=== PATIENT | male | born 1980 | race Caucasian/White ===

== ENCOUNTER 2016-05-14 22:14 | Emergency (ER) | payer BC ==
[~2016-05-14] VITALS: Ht 167.6 cm; Wt 86.2 kg
--- NOTE | 2016-05-14 22:15 | NUR ---
Pt placed in bed 5 and gowned up for evaluation
--- NOTE | 2016-05-14 22:20 | NUR ---
Pt BIB ambulance with c/o feeling "not well", "anxious", comes and goes. Pt stated he drank a beer at home, called 911. Pt denies emotional upset, denies SI. Skin intact, no sign of injury noted. A&Ox4, denies SOB or chestpain, denies N/V/D, will continue to monitor Addendum: 05/14/16 at 2309 by [email or web address] pt denies ingestion of any subtance, denies smoking
[2016-05-14 22:24] VITALS: BP 150/83; PULSE 112; RESP 18; TEMP 98.8; O2SAT 99
--- NOTE | 2016-05-14 23:21 | NUR ---
MD landeros at bedside examining pt
[2016-05-14 23:30] VITALS: BP 138/72; PULSE 89; RESP 18; TEMP 98.3; O2SAT 99
--- NOTE | 2016-05-14 23:30 | NUR ---
Patient given written and verbal discharge instructions and verbalizes understanding. ER MD Israel discussed with patient the results and treatment provided. Patient in stable condition. ID arm band removed. Rx of atarax given. Patient educated on pain management and to follow up with PMD. Pain Scale 0/10. Opportunity for questions provided and answered.
== END 2016-05-14 23:30 | disposition home or self-care (01) ==
LOC: SED 22:14
DX: F41.9 Anxiety disorder, unspecified (principal); R11.2 Nausea with vomiting, unspecified
CPT/HCPCS: 93005; 99283

== ENCOUNTER 2016-05-20 19:42 | Emergency (ER) | payer BC ==
[~2016-05-20] VITALS: Ht 162.6 cm; Wt 74.8 kg
[2016-05-20 19:42] VITALS: BP 133/83; PULSE 98; RESP 20; TEMP 98.3; O2SAT 99
--- NOTE | 2016-05-20 19:42 | NUR ---
Patient to ER bed 05 to gown for evaluation. Side rails up. Report given to WINSTON Eugene.
--- NOTE | 2016-05-20 19:45 | NUR ---
PT. PRESENTED TO ER AAOX4 FOR ANXIETY SYMPTOMS, STATES THAT HE DOES NOT FEEL NORMAL, UPON QUESTIONING PT. STATED THAT THERE HAS BEEN NO RECENT EVENTS IN HIS LIFE THAT COULD LEAD TO A PANIC ATTACK. PULSE 114, BP 131/78, TEMP 98.3, DENIES SOB, DENIES N/V, EMPLOYED, [employer]
--- NOTE | 2016-05-20 20:30 | NUR ---
ER at bedside examining patient.
[2016-05-20 20:46] LABS: BASOPHILS % (AUTO) 0.4 % (0.0-2.0); EOSINOPHILS # (AUTO) 0.1 K/uL (0.0-0.4); EOSINOPHILS % (AUTO) 0.8 % (0.0-4.0); HEMATOCRIT 46.3 % (36-54); HEMOGLOBIN 14.9 g/dL (14.0-18.0); LYMPHOCYTES # (AUTO) 4.4 K/uL (1.0-5.5); LYMPHOCYTES % (AUTO) 44.6 % (20.5-51.5); MEAN CORPUSCULAR HEMOGLOBIN 30 pg (27-31); MEAN CORPUSCULAR HGB CONC 32 % (32-36); MEAN CORPUSCULAR VOLUME 91 fL (79.0-98.0); MONOCYTES # (AUTO) 0.8 K/uL (0.0-1.0); MONOCYTES % (AUTO) 8.4 % (1.7-9.3); NEUTROPHILS # (AUTO) 4.5 K/uL (1.8-7.7); NEUTROPHILS % (AUTO) 45.8 % (40.0-70.0); PLATELET COUNT (AUTO) 416 K/uL (130-430); RED BLOOD CELL COUNT(AUTO) 5.07 MIL/uL (4.2-6.2); RED CELL DISTRIBUTION WIDTH 12.7 % (9.0-15.0); WHITE BLOOD COUNT (AUTO) 9.8 K/uL (4.8-10.8)
[2016-05-20] MEDS ORDERED: ALPRAZolam 0.25 MG TABLET PO ONE (21:00)
[2016-05-20 21:04] LABS: BARBITURATE, URINE NEGATIVE (NEG <=200); BENZODIAZEPINE, URINE NEGATIVE (NEG <=150); CANNABINOID, URINE NEGATIVE (NEG <=50); COCAINE, URINE NEGATIVE (NEG <=150); METHAMPHETAMINES SCREEN,URINE NEGATIVE (NEG <=500); OPIATE, URINE NEGATIVE (NEG <=100); PHENCYCLIDINE SCREEN,URINE NEGATIVE (NEG <=25); URINE AMPHETAMINE NEGATIVE (NEG <=500); URINE METHADONE NEGATIVE (NEG <=200)
[2016-05-20 21:05] LABS: UR TRICYCLIC ANTIDEPRESSANTS NEGATIVE (NEG <=300); URINE OXYCODONE SCREEN NEGATIVE (NEG <=100); URINE PROPOXYPHENE SCREEN NEGATIVE (NEG <=300)
--- NOTE | 2016-05-20 21:29 | NUR ---
Patient given written and verbal discharge instructions and verbalizes understanding. ER MD discussed with patient the results and treatment provided. Patient in stable condition. ID arm band removed. IV catheter removed intact and dressing applied, no active bleeding. Rx of xanax given. Patient educated on pain management and to follow up with PMD. Pain Scale 0/10. Opportunity for questions provided and answered.
[2016-05-20 21:30] VITALS: BP 121/77; PULSE 82; RESP 20; TEMP 98.1; O2SAT 99
== END 2016-05-20 21:30 | disposition home or self-care (01) ==
LOC: SED 19:42
DX: F41.9 Anxiety disorder, unspecified (principal)
CPT/HCPCS: 36415; 80307; 85025; 93005; 99285

== ENCOUNTER 2017-03-08 21:44 | Emergency (ER) | payer BC ==
[~2017-03-08] VITALS: Ht 167.6 cm; Wt 83.9 kg
[2017-03-08 21:50] VITALS: BP_SYST 149
[2017-03-09 01:50] VITALS: BP_SYST 135
== END 2017-03-09 01:50 | disposition home or self-care (01) ==
LOC: SED 21:44
DX: F41.9 Anxiety disorder, unspecified (principal)
CPT/HCPCS: 99284